=== PATIENT | female | born 1990 | race Caucasian/White ===

== ENCOUNTER 2017-02-16 20:42 | Emergency (ER) | payer BC ==
[2017-02-16] MEDS ORDERED: predniSONE 20 MG TAB PO STA ×2 (20:59→21:29)
--- NOTE | 2017-02-16 21:01 | ED ---
URI HPI - General Chief Complaint: Upper Respiratory Infection Stated Complaint: BETSY Time Seen by Provider: 02/16/17 20:49 Source: patient Mode of arrival: ambulatory Limitations: no limitations - History of Present Illness Initial Comments: This patient is a 26-year-old woman who presents to be evaluated for cough. She states that she believes little over a week ago she started having upper respiratory infection type symptoms. She had cough (mostly nonproductive), congestion, postnasal drip, low-grade fevers. She states that over the past day or so she feels like her asthma has started flaring up. The patient states she has having to use her albuterol. She took a breathing treatment about an hour ago and states that the treatments don't seem to be fully relieving her symptoms. Again patient denies fever or chills, any sputum, chest pain or dyspnea. There is no leg pain or swelling. No palpitations or syncope. MD Complaint: cough, rhinorrhea, nasal congestion, sinus pain Onset/Timin -: week(s) Improves With: nothing Worsens With: nothing Context: sick contacts - Related Data Home Medications Medication Instructions Recorded Confirmed Pnv with Ca,No.72/Iron/FA 1 tab PO DAILY 12/23/14 03/13/15 [ Plus Multivitamin Tab] Previous Rx's Medication Instructions Recorded Oxymetazoline 0.05% Nasl [place] 2 spray EA NOSTRIL BID PRN #1 02/16/17 [Afrin 0.05% Nasal [place]] bottle predniSONE 60 mg PO DAILY #30 tab 02/16/17 Allergies Allergy/AdvReac Type Severity Reaction Status Date / Time wheat AdvReac Nausea & Verified 02/16/17 20:48 Vomiting & Diarrhea Yeast AdvReac Nausea & Verified 02/16/17 20:48 Vomiting & Diarrhea yeast, dried AdvReac Nausea & Verified 02/16/17 20:48 Vomiting & Diarrhea Review of Systems ROS Statement: Those systems with pertinent positive or pertinent negative responses have been documented in the HPI. ROS Other: All systems not noted in ROS Statement are negative. Constitutional: Reports: as per HPI. Denies: fever, chills Respiratory: Reports: cough, wheezes. Denies: dyspnea Cardiovascular: Denies: chest pain, palpitations, edema, syncope Gastrointestinal: Denies: abdominal pain Genitourinary: Denies: dysuria, hematuria Skin: Denies: rash Neurological: Denies: headache Past Medical History Past Medical History: Asthma Additional Past Medical History / Comment(s): IBS, anxiety History of Any Multi-Drug Resistant Organisms: None Reported Past Surgical History: No Surgical Hx Reported Additional Past Surgical History / Comment(s): colonoscopy Past Anesthesia/Blood Transfusion Reactions: No Reported Reaction Past Psychological History: Anxiety, Panic Disorder Smoking Status: Never smoker Past Alcohol Use History: None Reported Past Drug Use History: None Reported - Past Family History Father Family Medical History: No Reported History General Exam Limitations: no limitations General appearance: alert, in no apparent distress Head exam: Present: atraumatic, normocephalic Eye exam: Present: normal appearance. Absent: scleral icterus, conjunctival injection ENT exam: Present: normal oropharynx, mucous membranes moist, TM's normal bilaterally Neck exam: Present: normal inspection, full ROM, lymphadenopathy. Absent: meningismus Respiratory exam: Present: normal lung sounds bilaterally, other (The respiratory rate is 16 during my exam). Absent: respiratory distress, wheezes, rales, rhonchi, stridor, accessory muscle use, decreased breath sounds, prolonged expiratory Cardiovascular Exam: Present: regular rate, normal rhythm, normal heart sounds. Absent: systolic murmur, diastolic murmur, rubs, gallop GI/Abdominal exam: Present: soft. Absent: tenderness, guarding, rebound, mass Extremities exam: Present: normal inspection, normal capillary refill. Absent: pedal edema, calf tenderness Back exam: Present: normal inspection. Absent: CVA tenderness (R), CVA tenderness (L) Skin exam: Present: warm, dry, intact, normal color. Absent: rash Course Vital Signs 02/16/17 20:44 Temperature 98.3 F Pulse Rate 91 Respiratory 22 Rate Blood Pressure 116/68 O2 Sat by Pulse 100 Oximetry Disposition Clinical Impression: Upper respiratory infection, Asthma Disposition: HOME SELF-CARE Condition: Good Instructions: Asthma (ED), Upper Respiratory Infection (ED) Prescriptions: Oxymetazoline 0.05% Nasl [place] [Afrin 0.05% Nasal [place]] 2 spray EA NOSTRIL BID PRN #1 bottle PRN Reason: Congestion predniSONE 60 mg PO DAILY #30 tab Referrals: Zaid Caraballo DO [Primary Care Provider] - 1-2 days
[2017-02-16] MEDS ORDERED: ALBUTEROL NEBULIZED 2.5 MG/3 ML INHALATION STA (21:19)
[2017-02-16 22:19] VITALS: BP 115/74; PULSE 87; RESP 16; TEMP 98.7
== END 2017-02-16 22:17 | disposition home or self-care (01) ==
LOC: EC 20:42
DX: J45.909 Unspecified asthma, uncomplicated (principal); J06.9 Acute upper respiratory infection, unspecified; Z79.899 Other long term (current) drug therapy; Z91.018 Allergy to other foods; Z91.048 Other nonmedicinal substance allergy status
CPT/HCPCS: 94640; 99283; J7512

== ENCOUNTER → 2017-06-04 | Outpatient (CLI) | payer BC ==
--- NOTE | 2017-06-04 16:58 | XR ---
EXAMINATION TYPE: XR wrist limited RT DATE OF EXAM: 06/04/2017 COMPARISON: NONE HISTORY: 26 year-old female right wrist pain TECHNIQUE: 2 views FINDINGS: There is very slight positive ulnar variance. The radiocarpal and distal radioulnar joints as well as the midcarpal compartment appear intact. No acute fracture, subluxation, or dislocation. IMPRESSION: Slight positive ulnar variance. No acute osseous abnormality seen.
== END ==
LOC: RADXRMAIN 16:24
PROVIDERS: ATTEND Family Medicine
DX: M25.531 Pain in right wrist (principal)

== ENCOUNTER 2017-09-07 14:42 | Emergency (ER) | payer BC ==
[2017-09-07] MEDS ORDERED: METOCLOPRAMIDE 5 MG/ML 2 ML VIAL IVP STA (15:18)
[2017-09-07] MEDS ORDERED: SODIUM CHLORIDE 0.9% 1,000 ML IV STA (15:19)
--- NOTE | 2017-09-07 15:28 | ED ---
General Adult HPI - General Chief complaint: Nausea/Vomiting/Diarrhea Stated complaint: NVD Time Seen by Provider: 09/07/17 14:47 Source: patient, RN notes reviewed Mode of arrival: ambulatory Limitations: no limitations - History of Present Illness Initial comments: 27-year-old female presents to the emergency department for a chief complaint of diarrhea 5 days. Patient states she has had multiple bouts of diarrhea over the past 5 days and says it is up to 10 times a day max. Patient states she has vomited only twice in the past week. Patient denies any blood or mucus in the stool. Patient states she has not had any formed stools. Patient states she went to [facility] earlier this week and was diagnosed with a UTI and treated with Cipro. Patient is currently still taking Cipro. She had not been on any previous antibiotics. Patient denies any recent hospitalizations or prison visits. Patient does work at a [employer]. Patient denies any travel or camping. Patient cannot recall if she ate anything out of the ordinary but states she has been trying to think about whether it may be food related. Patient does have a history of irritable bowel syndrome but states this is more severe than her normal occurrences. Patient denies any abdominal pain besides some light cramping. Patient states she is able to keep down liquids and has been drinking Powerade and water. Patient states she has not been eating much due to the nausea and diarrhea. Patient denies any other complaints at this time including shortness of breath, chest pain, headaches, visual changes or any other complaints. - Related Data Home Medications Medication Instructions Recorded Confirmed Albuterol Inhaler [Ventolin Hfa 2 puff INHALATION RT-Q6H PRN 02/16/17 09/07/17 Inhaler] Nadolol [Corgard] 20 mg PO HS 02/16/17 09/07/17 Eletriptan [Relpax] 40 mg PO DAILY PRN 09/07/17 09/07/17 Escitalopram Oxalate [Lexapro] 10 mg PO HS 09/07/17 09/07/17 Montelukast [Singulair] 10 mg PO HS 09/07/17 09/07/17 Multivitamins, Thera [Multivitamin 1 tab PO HS 09/07/17 09/07/17 (formulary)] Topiramate [Topamax] 50 mg PO BID 09/07/17 09/07/17 diphenhydrAMINE HCL [Benadryl] 25 mg PO DAILY PRN 09/07/17 09/07/17 Previous Rx's Medication Instructions Recorded Oxymetazoline 0.05% Nasl [place] 2 spray EA NOSTRIL BID PRN #1 02/16/17 [Afrin 0.05% Nasal [place]] bottle Metoclopramide [Reglan] 5 mg PO TID #9 tab 09/07/17 Allergies Allergy/AdvReac Type Severity Reaction Status Date / Time wheat AdvReac Nausea & Verified 09/07/17 14:53 Vomiting & Diarrhea Yeast AdvReac Nausea & Verified 09/07/17 14:53 Vomiting & Diarrhea yeast, dried AdvReac Nausea & Verified 09/07/17 14:53 Vomiting & Diarrhea Review of Systems ROS Statement: Those systems with pertinent positive or pertinent negative responses have been documented in the HPI. ROS Other: All systems not noted in ROS Statement are negative. Past Medical History Past Medical History: Asthma Additional Past Medical History / Comment(s): IBS, anxiety History of Any Multi-Drug Resistant Organisms: None Reported Past Surgical History: No Surgical Hx Reported Additional Past Surgical History / Comment(s): colonoscopy Past Anesthesia/Blood Transfusion Reactions: No Reported Reaction Past Psychological History: Anxiety, Panic Disorder Smoking Status: Current some day smoker Past Alcohol Use History: None Reported Past Drug Use History: None Reported - Past Family History Father Family Medical History: No Reported History General Exam Limitations: no limitations General appearance: alert, in no apparent distress Head exam: Present: atraumatic, normocephalic, normal inspection Eye exam: Present: normal appearance, PERRL, EOMI. Absent: scleral icterus, conjunctival injection, periorbital swelling ENT exam: Present: normal exam, normal oropharynx, mucous membranes moist, TM's normal bilaterally Neck exam: Present: normal inspection Respiratory exam: Present: normal lung sounds bilaterally. Absent: respiratory distress, wheezes, rales, rhonchi, stridor Cardiovascular Exam: Present: regular rate, normal rhythm, normal heart sounds. Absent: systolic murmur, diastolic murmur, rubs, gallop, clicks GI/Abdominal exam: Present: soft, tenderness (very mild LLQ tenderness), normal bowel sounds. Absent: distended, guarding, rebound, rigid Course Vital Signs 09/07/17 14:46 Temperature 97.7 F Pulse Rate 80 Respiratory 18 Rate Blood Pressure 125/63 O2 Sat by Pulse 100 Oximetry Medical Decision Making - Medical Decision Making 27-year-old female presents to the emergency department for a chief complaint of diarrhea 5 days. Patient has a history of IBS. Patient states she went to [facility] earlier this week for these symptoms and was treated for UTI with Cipro. Patient is still taking the Cipro. CBC and CMP were unremarkable. Urinalysis and hcg were negative. KUB x-ray also showed no acute abnormalities. Occult blood and C. diff were negative. Stool culture and Giardia and stool white blood cells were ordered. This could be an exacerbation of IBS or a viral gastroenteritis. Patient is to follow up with GI specialist or primary care provider in one to 2 days. She was provided with a phone number for Dr. Koch. She is to return to the emergency Department if she has any worsening symptoms. - Lab Data Result diagrams: 09/07/17 15:31 09/07/17 15:31 Lab Results 09/07/17 09/07/17 09/07/17 Range/Units 15:19 15:19 15:31 WBC 8.0 (3.8-10.6) k/uL RBC 5.38 (3.80-5.40) m/uL Hgb 16.4 H (11.4-16.0) gm/dL Hct 46.0 (34.0-46.0) % MCV 85.6 (80.0-100.0) fL MCH 30.5 (25.0-35.0) pg MCHC 35.6 (31.0-37.0) g/dL RDW 13.6 (11.5-15.5) % Plt Count 289 (150-450) k/uL Neutrophils % 69 % Lymphocytes % 21 % Monocytes % 6 % Eosinophils % 2 % Basophils % 1 % Neutrophils # 5.5 (1.3-7.7) k/uL Lymphocytes # 1.7 (1.0-4.8) k/uL Monocytes # 0.4 (0-1.0) k/uL Eosinophils # 0.2 (0-0.7) k/uL Basophils # 0.1 (0-0.2) k/uL Hyperchromasia Slight Sodium (137-145) mmol/L Potassium (3.5-5.1) mmol/L Chloride (98-107) mmol/L Carbon Dioxide (22-30) mmol/L Anion Gap mmol/L BUN (7-17) mg/dL Creatinine (0.52-1.04) mg/dL Est GFR (CKD-EPI)AfAm (>60 ml/min/1.73 sqM) Est GFR (CKD-EPI)NonAf (>60 ml/min/1.73 sqM) Glucose (74-99) mg/dL Calcium (8.4-10.2) mg/dL Total Bilirubin (0.2-1.3) mg/dL AST (14-36) U/L ALT (9-52) U/L Alkaline Phosphatase (38-126) U/L Total Protein (6.3-8.2) g/dL Albumin (3.5-5.0) g/dL Urine Color Yellow Urine Appearance Clear (Clear) Urine pH 6.5 (5.0-8.0) Ur Specific [place] 1.023 (1.001-1.035) Urine Protein Trace H (Negative) Urine Glucose (UA) Negative (Negative) Urine Ketones Negative (Negative) Urine Blood Negative (Negative) Urine Nitrite Negative (Negative) Urine Bilirubin Negative (Negative) Urine Urobilinogen 2.0 (<2.0) mg/dL Ur Leukocyte Esterase Negative (Negative) Urine HCG, Qual Not Detected (Not Detectd) Stool Occult Blood (Negative) C. difficile (EIA) Intrp (Negative) 09/07/17 09/07/17 09/07/17 Range/Units 15:31 15:57 15:57 WBC (3.8-10.6) k/uL RBC (3.80-5.40) m/uL Hgb (11.4-16.0) gm/dL Hct (34.0-46.0) % MCV (80.0-100.0) fL MCH (25.0-35.0) pg MCHC (31.0-37.0) g/dL RDW (11.5-15.5) % Plt Count (150-450) k/uL Neutrophils % % Lymphocytes % % Monocytes % % Eosinophils % % Basophils % % Neutrophils # (1.3-7.7) k/uL Lymphocytes # (1.0-4.8) k/uL Monocytes # (0-1.0) k/uL Eosinophils # (0-0.7) k/uL Basophils # (0-0.2) k/uL Hyperchromasia Sodium 145 (137-145) mmol/L Potassium 4.0 (3.5-5.1) mmol/L Chloride 108 H (98-107) mmol/L Carbon Dioxide 22 (22-30) mmol/L Anion Gap 15 mmol/L BUN 15 (7-17) mg/dL Creatinine 0.82 (0.52-1.04) mg/dL Est GFR (CKD-EPI)AfAm >90 (>60 ml/min/1.73 sqM) Est GFR (CKD-EPI)NonAf >90 (>60 ml/min/1.73 sqM) Glucose 98 (74-99) mg/dL Calcium 9.6 (8.4-10.2) mg/dL Total Bilirubin 1.1 (0.2-1.3) mg/dL AST 21 (14-36) U/L ALT 29 (9-52) U/L Alkaline Phosphatase 28 L (38-126) U/L Total Protein 8.1 (6.3-8.2) g/dL Albumin 4.7 (3.5-5.0) g/dL Urine Color Urine Appearance (Clear) Urine pH (5.0-8.0) Ur Specific [place] (1.001-1.035) Urine Protein (Negative) Urine Glucose (UA) (Negative) Urine Ketones (Negative) Urine Blood (Negative) Urine Nitrite (Negative) Urine Bilirubin (Negative) Urine Urobilinogen (<2.0) mg/dL Ur Leukocyte Esterase (Negative) Urine HCG, Qual (Not Detectd) Stool Occult Blood Negative (Negative) C. difficile (EIA) Intrp Negative (Negative) Disposition Clinical Impression: Diarrhea Disposition: HOME SELF-CARE Condition: Good Instructions: Acute Diarrhea (ED) Additional Instructions: Please return to the emergency department if you have any worsening symptoms. Otherwise follow-up with primary care provider and gastrointestinal physician. You may take Reglan as needed for nausea. Prescriptions: Metoclopramide [Reglan] 5 mg PO TID #9 tab Is patient prescribed a controlled substance at d/c from ED?: No Referrals: Zaid Caraballo DO [Primary Care Provider] - 1-2 days Antonino Koch MD [STAFF PHYSICIAN] - 1-2 days Time of Disposition: 18:12
[2017-09-07 15:36] LABS: Appearance,Urine Clear (Clear); Bilirubin,Urine Negative (Negative); Blood,Urine Negative (Negative); Color,Urine Yellow; Glucose,Urine (UA) Negative (Negative); Ketones,Urine Negative (Negative); Leukocyte Esterase,Urine Negative (Negative); Nitrite,Urine Negative (Negative); PH, Urine 6.5 (5.0-8.0); Protein,Urine Trace (Negative); Specific Gravity,Urine 1.023 (1.001-1.035)
[2017-09-07 15:46] LABS: Basophils # (A) 0.1 k/uL (0-0.2); Basophils % (A) 1 %; Eosinophils # (A) 0.2 k/uL (0-0.7); Eosinophils % (A) 2 %; HGB 16.4 gm/dL (11.4-16.0); Hyperchromasia Slight; Lymphocytes # (A) 1.7 k/uL (1.0-4.8); Lymphocytes % (A) 21 %; MCH 30.5 pg (25.0-35.0); MCHC 35.6 g/dL (31.0-37.0); MCV 85.6 fL (80.0-100.0); Mean Platelet Volume 7.8; Monocytes # (A) 0.4 k/uL (0-1.0); Monocytes % (A) 6 %; Neutrophils # (A) 5.5 k/uL (1.3-7.7); Neutrophils % (A) 69 %; Platelet Count 289 k/uL (150-450); RBC 5.38 m/uL (3.80-5.40); RDW 13.6 % (11.5-15.5)
[2017-09-07 15:57] LABS: ALT 29 U/L (9-52); AST 21 U/L (14-36); Albumin 4.7 g/dL (3.5-5.0); Alkaline Phosphatase 28 U/L (38-126); Anion Gap 15 mmol/L; Blood Urea Nitrogen 15 mg/dL (7-17); Calcium 9.6 mg/dL (8.4-10.2); Carbon Dioxide 22 mmol/L (22-30); Chloride 108 mmol/L (98-107); Glucose 98 mg/dL (74-99); Sodium 145 mmol/L (137-145); Total Bilirubin 1.1 mg/dL (0.2-1.3); Total Protein 8.1 g/dL (6.3-8.2)
--- NOTE | 2017-09-07 16:35 | XR ---
EXAMINATION TYPE: XR KUB DATE OF EXAM: 09/07/2017 COMPARISON: NONE HISTORY: Pain TECHNIQUE: Single supine KUB image of the abdomen is obtained FINDINGS: Small bowel demonstrates no evidence for dilatation or air fluid levels. Gas and fecal material is seen in non-distended colon. No convincing evidence for pneumoperitoneum. No unusual calcifications. The lung bases are clear. The osseous structures are intact. IMPRESSION: 1. Overall nonobstructive bowel gas pattern.
[2017-09-07 18:21] VITALS: BP 99/60; PULSE 72; RESP 16; TEMP 98.2
== END 2017-09-07 18:20 | disposition home or self-care (01) ==
LOC: EC 14:42
DX: R19.7 Diarrhea, unspecified (principal); N39.0 Urinary tract infection, site not specified; R11.2 Nausea with vomiting, unspecified; J45.909 Unspecified asthma, uncomplicated; F41.0 Panic disorder [episodic paroxysmal anxiety]; F17.200 Nicotine dependence, unspecified, uncomplicated; Z79.899 Other long term (current) drug therapy; Z91.018 Allergy to other foods
CPT/HCPCS: 99284; 96374; 96361; 36415; 80053; 85025; 82272; 81003; 81025; 87324; 87045; 87329; 89055; 87046; 74018; J2765